=== PATIENT | female | born 2000 ===

== ENCOUNTER 2024-03-30 05:50 | Day surgery (SDC) | payer OTHER ==
[2024-03-30] MEDS ORDERED: MIDAZOLAM HCL 2 MG/2 ML VIAL IV ONE (09:00)
[2024-03-30] MEDS ORDERED: DIPHENHYDRAMINE HCL 50 MG/ML VIAL 1ML IV ONE (09:00)
[2024-03-30] MEDS ORDERED: fentaNYL CITRATE 50 MCG/ML AMPUL IV PUSH ONE (09:00)
== END 2024-03-30 10:50 | disposition home or self-care (01) ==
LOC: AMB-ENDOS 05:50
PROVIDERS: ATTEND Colon & Rectal Surgery
DX: K62.5 Hemorrhage of anus and rectum (principal); K57.30 Diverticulosis of large intestine without perforation or abscess without bleeding